=== PATIENT | female | born 1990 | race Caucasian/White ===

== ENCOUNTER 2022-11-18 06:14 | Day surgery (SDC) | payer BC ==
[~2022-11-18] VITALS: Ht 167.6 cm; Wt 86.2 kg
[2022-11-18] MEDS ORDERED: CEFAZOLIN SOD 2 GM in D5W 50 ML IV ONE (07:00)
[2022-11-18 07:30] LABS: HCG,QUAL RESULT NEGATIVE (NEGATIVE)
[2022-11-18] MEDS ORDERED: LIDOCAINE 2%, 20 ML MDV ONE (07:30)
[2022-11-18] MEDS ORDERED: fentaNYL CITRATE/PF 100 MCG/2 ML AMP ONE (07:30)
[2022-11-18] MEDS ORDERED: DESFLURANE 15 MIN GAS INH ONE (07:30)
[2022-11-18] MEDS ORDERED: MIDAZOLAM HCL/PF 2 MG/2 ML SYRINGE ONE (07:30)
[2022-11-18] MEDS ORDERED: DEXAMETHASONE SOD PHOSPHATE 4 MG/ML VIAL ONE (07:30)
[2022-11-18] MEDS ORDERED: PROPOFOL 200MG/ 20ML VIAL (DIPRIVAN) IV ONE (07:30)
[2022-11-18] MEDS ORDERED: BUPIVACAINE /PF 0.25% 30 ML VIAL INJ ONE (07:30)
[2022-11-18] MEDS ORDERED: NS 1000 ML IV.SOLN IV ONE (07:30)
[2022-11-18] MEDS ORDERED: NS IRRIG SOLN 1000 ML IR ONE (07:30)
[2022-11-18] MEDS ORDERED: KETOROLAC TROMETHAMINE 30 MG VIAL ONE (07:30)
[2022-11-18] MEDS ORDERED: ROCURONIUM BROMIDE 10 MG/ML (ZEMURON) ONE (07:30)
[2022-11-18] MEDS ORDERED: SUGAMMADEX SODIUM 200 MG/2 ML VIAL IV ONE (07:30)
[2022-11-18] MEDS ORDERED: ONDANSETRON HCL 4 MG/2 ML VIAL ONE (07:30)
[2022-11-18] MEDS ORDERED: LR 1,000 ML IV SCH (08:15)
[2022-11-18] MEDS ORDERED: LABETALOL 100 MG/ 20ML VIAL IVP PRN (08:15)
[2022-11-18] MEDS ORDERED: hydrALAZINE HCL 20 MG/ML VIAL IVP PRN (08:15)
[2022-11-18] MEDS ORDERED: HYDROmorphone 1 MG/ML INJ. CARTRIDGE IVP PRN ×2 (08:15)
[2022-11-18] MEDS ORDERED: MIDAZOLAM HCL 2 MG/2 ML VIAL (VERSED) IVP PRN (08:15)
[2022-11-18] MEDS ORDERED: MEPERIDINE HCL/PF 25 MG/ML DISP.SYRIN IVP PRN (08:15)
[2022-11-18] MEDS ORDERED: METOCLOPRAMIDE HCL 10 MG/2 ML VIAL IVP PRN (08:15)
[2022-11-18] MEDS ORDERED: ACETAMINOPHEN I.V. 1000 MG 100 ML IV ONE (08:37)
[2022-11-18] MEDS ORDERED: D5/0.45 NS 1,000 ML IV SCH (09:15)
[2022-11-18] MEDS ORDERED: HYDROcodone/ACETAMIN 5-325 MG TAB (NORCO/ VICODIN) PO PRN ×2 (09:15)
[2022-11-18 14:45] VITALS: BP_SYST 106
== END 2022-11-18 10:45 | disposition home or self-care (01) ==
LOC: SDS 06:14 → SMU 06:15 → SDS 10:45
PROVIDERS: ATTEND Colon & Rectal Surgery
DX: K80.10 Calculus of gallbladder with chronic cholecystitis without obstruction (principal); Z79.899 Other long term (current) drug therapy
CPT/HCPCS: 87081; 47563; 84703; 74300; J3490 ×2; J0690; J1100; J1885; J2001; J3465; J2405; J2704; J3010; Q9967; J7060; J7120; J7030; J0131; 88304; C1727; C1758